=== PATIENT | female | born 1950 | race Caucasian/White ===

== ENCOUNTER 2022-04-23 12:10 | Observation (INO) | payer MEDICARE, SELFPAY ==
--- NOTE | ~2022-04-23 | XR_ITS ---
EXAMINATION: XR CHEST CLINICAL INFORMATION: Chest pain COMPARISON: 02/11/2020 TECHNIQUE: Frontal view of the chest was obtained. FINDINGS: Lung volumes are symmetric. No focal consolidation is seen. No evidence of pneumothorax, pleural effusion, or pulmonary edema. Cardiac size is within normal limits. Calcification is present at the aortic arch. Redemonstrated prominent hiatal hernia. Sternal wires are present. No acute osseous findings are seen. XR/XR chest 1V IMPRESSION: Redemonstrated prominent hiatal hernia. No new acute findings identified.
--- NOTE | 2022-04-23 12:20 | ECG_ITS ---
Test Reason : cp Blood Pressure : / mmHG Vent. Rate : 085 BPM Atrial Rate : 085 BPM P-R Int : 176 ms QRS Dur : 076 ms QT Int : 412 ms P-R-T Axes : 000 024 086 degrees QTc Int : 490 ms Sinus rhythm with frequent Premature ventricular complexes and Premature atrial complexes Anterior infarct , age undetermined Abnormal ECG When compared with ECG of 15-FEB-2020 05:20, Premature ventricular complexes are now Present Premature atrial complexes are now Present Nonspecific T wave abnormality now evident in Inferior leads Nonspecific T wave abnormality no longer evident in Anterior leads Referred By: Dina Yap Electronically Signed By:Huseyin Lorenzo
[2022-04-23 12:21] VITALS: BP 167/99; BP 169/84; PULSE 74; PULSE 85; RESP 16; O2SAT 94; BMI 19.5
--- NOTE | 2022-04-23 12:26 | ED.CHESTPAIN ---
HPI - Chest Pain General Chief Complaint: Chest Pain Stated Complaint: CP TO L ARM STARTED @ REST PER EMS Time Seen by Provider: 04/23/22 12:23 Source: patient Mode of arrival: EMS Limitations: no limitations History of Present Illness MD complaint: chest pain Onset (ago): hour(s) (2) Timing of current episode: now resolved (post fentanyl with EMS) Prior episodes: No Onset: during rest Pain location: substernal and epigastric Pain radiation: left shoulder Severity: mild Quality: heaviness Relieving factors: nothing Exacerbating factors: other (went away after EMS fentanyl) Associated symptoms: nausea Treatment prior to arrival: other (IV fentanyl 50mcg) Related Data Previous Rx's Medication Instructions Recorded tapentadol 150 mg tablet,extended 150 mg PO BID #14 tabs 12/16/20 release,12 hr (Nucynta ER) Allergies Allergy/AdvReac Type Severity Reaction Status Date / Time No Known Allergies Allergy Unknown NOT Unverified 07/04/20 14:39 APPLICABLE Review of Systems Review of Systems: Constitutional : No Weight loss, No Fever, No Chills ENT/Mouth : No sore throat, No Rhinorrhea Eyes: No Eye Pain, No Swelling Cardiovascular : pos Chest Pain, no SOB, no Dyspnea on Exertion, No Orthopnea, No Edema, No Palpitations Respiratory : No Cough, No Sputum Gastrointestinal : pos Nausea, No Vomiting, No Diarrhea, pos abdominal Pain, No Hematochezia, No Melena Genitourinary : No Dysuria, No Urinary Frequency Musculoskeletal : No joint pain, No Myalgias, No Joint Swelling Skin : No Skin Lesions, No rash Neuro : No Weakness, No Numbness, No Dizziness, No Headache Psych : No Anxiety/Panic, No Depression Heme/Lymph: No Bruising, No Lymphadenopathy Endocrine : No Polyuria, No Polydipsia All other systems reviewed and are negative PMFSH Past Medical History Medical History (Updated 04/23/22 @ 15:40 by Dina Yap DO) Anxiety CVA (cerebral vascular accident) Depression Hyperlipidemia Surgical History Mitral valve replaced Social History Social History (Updated 04/23/22 @ 12:54 by Dina Yap DO) Patient Tobacco Use Status: Never used Tobacco Advance Directives: Yes Advance Directives on File: No Physical Exam Vital Signs: Vital Signs: Last Vital Signs Temp 98.7 F 04/23/22 14:10 Pulse 79 04/23/22 14:10 Resp 12 04/23/22 14:10 BP 135/52 L 04/23/22 14:10 Pulse Ox 97 04/23/22 14:10 O2 Del Method 04/23/22 14:10 BMI result Body Mass Index 19.5 Appearance: Alert. Oriented X3. No acute distress. Eyes: Pupils equal, round and reactive to light. ENT: Pharynx normal. Neck: Normal inspection. Neck supple. CVS: Normal heart rate and rhythm. Pulses normal. Click heard Respiratory: No respiratory distress. Breath sounds normal. Abdomen: Soft and nontender. states she has no pain to palpations Skin: Skin warm and dry. Normal skin color. Normal skin turgor. Extremities: No lower extremity edema. No calf ttp Neuro: Oriented X 3. R sided hemiparesis No sensory deficit. Course Course Course Narrative: troponin repeat under delta will repeat troponin if it remains negative will anticipate DC home signed out pending repeat troponin signed out to Dr. Browning patient has no complaints at this time if repeat negative can be DC has no chest pain at this time MDM - Chest Pain MDM Narrative Medical decision making narrative: 71 yo female hx of MV replacement on coumadin, CVA hx of R sided hemiparesis, HTN, HLD, anxiety here with c/o chest pain that started 2 hours ago at rest - EKG is nonspecific. She is on coumadin doubt PE. At this time will obtain labs, troponin x 2. Pain gone with nitro. She has a nontender abdomen as well. Dispo per results and findings. Lab Data Result diagrams: 04/23/22 12:38 04/23/22 12:38 Labs: Lab Results 04/23/22 04/23/22 04/23/22 Range/Units 12:37 12:38 12:38 WBC 8.9 (4.8-10.8) X10*3/uL RBC 5.00 (4.20-5.50) X10*6/uL Hgb 15.3 (12.0-16.0) g/dl Hct 45.6 (37.0-47.0) % MCV 91.2 (80.0-98.0) fL MCH 30.6 (27.0-33.0) pg MCHC 33.6 (31.0-35.0) g/dl RDW 12.9 (11.0-16.0) % Plt Count 200 (160-400) X10*3/uL MPV 9.5 (9.4-12.3) fL Immature Gran % (Auto) 0.3 (0.0-0.4) % Neut % (Auto) 82.3 H (45-73) % Lymph % (Auto) 10.8 L (20-40) % [place] % (Auto) 4.7 (2-11) % Eos % (Auto) 1.1 (0-4) % Baso % (Auto) 0.8 (0-2) % Lymph # (Auto) 1.0 L (1.2-4.9) X10*3/uL [place] # (Auto) 0.4 (0.1-1.2) X10*3/uL Eos # (Auto) 0.1 (0.0-0.4) X10*3/uL Baso # (Auto) 0.1 (0.0-0.2) X10*3/uL Abs Immat Gran (auto) 0.03 (0.00-0.03) X10*3/uL Absolute Neuts (auto) 7.3 (2.0-8.3) x10*3/uL Absolute Nucleated RBC 0.000 (0.0-0.012) X10*3/uL Nucleated RBC % (auto) 0.0 (0.0-0.2) /100WBC PT (10.0-13.1) SEC INR (0.9-1.1) Sodium 138 (135-145) mmol/L Potassium 4.4 (3.3-5.1) mmol/L Chloride 104 (96-108) mmol/L Carbon Dioxide 25 (22-29) mmol/L Anion Gap 13 (12-20) BUN 18 H (9-16) mg/dL Creatinine 0.95 (0.5-1.4) mg/dL Estim Creat Clear Calc 55.2 Estimated GFR 58 Random Glucose 146 H (60-115) mg/dL Calcium 9.5 (8.4-10.2) mg/dL Magnesium 1.8 (1.6-2.6) mg/dL Total Bilirubin 0.6 (0.0-1.0) mg/dL Direct Bilirubin 0.3 (0.0-0.5) mg/dL AST 29 (5-31) U/L ALT 27 (0-31) U/L Alkaline Phosphatase 90 (39-117) U/L Troponin I High Sens (<3.5-17.0) ng/L Total Protein 7.6 (6.5-8.0) g/dL Albumin 4.3 (3.5-5.0) g/dL Lipase 33 (8-78) U/L COVID-19 ([facility]) Negative (Negative) COVID-19 Clin Com See Note 04/23/22 04/23/22 04/23/22 Range/Units 12:38 12:38 15:06 WBC (4.8-10.8) X10*3/uL RBC (4.20-5.50) X10*6/uL Hgb (12.0-16.0) g/dl Hct (37.0-47.0) % MCV (80.0-98.0) fL MCH (27.0-33.0) pg MCHC (31.0-35.0) g/dl RDW (11.0-16.0) % Plt Count (160-400) X10*3/uL MPV (9.4-12.3) fL Immature Gran % (Auto) (0.0-0.4) % Neut % (Auto) (45-73) % Lymph % (Auto) (20-40) % [place] % (Auto) (2-11) % Eos % (Auto) (0-4) % Baso % (Auto) (0-2) % Lymph # (Auto) (1.2-4.9) X10*3/uL [place] # (Auto) (0.1-1.2) X10*3/uL Eos # (Auto) (0.0-0.4) X10*3/uL Baso # (Auto) (0.0-0.2) X10*3/uL Abs Immat Gran (auto) (0.00-0.03) X10*3/uL Absolute Neuts (auto) (2.0-8.3) x10*3/uL Absolute Nucleated RBC (0.0-0.012) X10*3/uL Nucleated RBC % (auto) (0.0-0.2) /100WBC PT 33.5 H (10.0-13.1) SEC INR 2.8 H (0.9-1.1) Sodium (135-145) mmol/L Potassium (3.3-5.1) mmol/L Chloride (96-108) mmol/L Carbon Dioxide (22-29) mmol/L Anion Gap (12-20) BUN (9-16) mg/dL Creatinine (0.5-1.4) mg/dL Estim Creat Clear Calc Estimated GFR Random Glucose (60-115) mg/dL Calcium (8.4-10.2) mg/dL Magnesium (1.6-2.6) mg/dL Total Bilirubin (0.0-1.0) mg/dL Direct Bilirubin (0.0-0.5) mg/dL AST (5-31) U/L ALT (0-31) U/L Alkaline Phosphatase (39-117) U/L Troponin I High Sens 13.2 17.7 H (<3.5-17.0) ng/L Total Protein (6.5-8.0) g/dL Albumin (3.5-5.0) g/dL Lipase (8-78) U/L COVID-19 ([facility]) (Negative) COVID-19 Clin Com ECG Data ECG #1: Attestation: I personally reviewed and interpreted this ECG as follows: ECG interpretation date: 04/23/22 ECG interpretation time: 12:35 Interpretation: Rate: 85 Rhythm: NSR with PACs and PVCs [place]: normal Normal P waves. Normal VIRI. Normal QRS complex. ST T wave : no MYRON, nonspecific qTC: prolonged prior studies: no acute ischemia The study has been interpreted contemporaneously by me. ECG #2: Attestation: I personally reviewed and interpreted this ECG as follows: ECG interpretation date: 04/23/22 ECG interpretation time: 15:53 Interpretation: Rate: 73 Rhythm: NSR [place]:normal Normal P waves. Normal VIRI. Normal QRS complex. ST T wave : nonspecific, no MYRON qTC: normal prior studies: no sig change from january 2020 The study has been interpreted contemporaneously by me. . Discharge Plan Discharge Clinical Impression: Chest pain Qualifiers: Chest pain type: precordial pain Qualified Code(s): R07.2 - Precordial pain Patient Disposition: Still a Patient Prescriptions: No Action Nucynta ER 150 mg tablet extended release 12 hr 150 mg PO BID Qty: 14 0RF
[2022-04-23 12:33] VITALS: TEMP 36.8
[2022-04-23 12:48] LABS: MANUAL DIFF FLAG NO
[2022-04-23 12:50] LABS: Basophils Absolute Auto 0.1 X10*3/uL (0.0-0.2); Basophils Percent Auto 0.8 % (0-2); Eosinophils Absolute Auto 0.1 X10*3/uL (0.0-0.4); Eosinophils Percent Auto 1.1 % (0-4); Hematocrit 45.6 % (37.0-47.0); Hemoglobin 15.3 g/dl (12.0-16.0); Imm Gran Abs Auto 0.03 X10*3/uL (0.00-0.03); Imm Gran Pct Auto 0.3 % (0.0-0.4); Lymphocytes Percent Auto 10.8 % (20-40); Mean Corpuscular HGB Conc 33.6 g/dl (31.0-35.0); Mean Corpuscular Hemoglobin 30.6 pg (27.0-33.0); Mean Corpuscular Volume 91.2 fL (80.0-98.0); Mean Platelet Volume 9.5 fL (9.4-12.3); Monocytes Absolute Auto 0.4 X10*3/uL (0.1-1.2); Monocytes Percent Auto 4.7 % (2-11); Neutrophils Absolute Auto 7.3 x10*3/uL (2.0-8.3); Neutrophils Percent Auto 82.3 % (45-73); Platelet Count 200 X10*3/uL (160-400); Red Cell Distribution Width 12.9 % (11.0-16.0); White Blood Count 8.9 X10*3/uL (4.8-10.8)
[2022-04-23 12:58] LABS: INTERNATIONAL NORM RATIO 2.8 (0.9-1.1); Prothrombin Time 33.5 SEC (10.0-13.1)
[2022-04-23 13:08] LABS: Alanine Aminotransferase 27 U/L (0-31); Albumin Level 4.3 g/dL (3.5-5.0); Alkaline Phosphatase 90 U/L (39-117); Anion Gap 13 (12-20); Aspartate Amino Transferase 29 U/L (5-31); Bilirubin Direct 0.3 mg/dL (0.0-0.5); Bilirubin Total 0.6 mg/dL (0.0-1.0); Blood Urea Nitrogen 18 mg/dL (9-16); Calcium 9.5 mg/dL (8.4-10.2); Carbon Dioxide 25 mmol/L (22-29); Chloride 104 mmol/L (96-108); Creatinine Clr Calc Pharmacy 55.2; Estimated Glomerular Filt Rate 58; Glucose Random 146 mg/dL (60-115); Lipase 33 U/L (8-78); Magnesium 1.8 mg/dL (1.6-2.6); Potassium 4.4 mmol/L (3.3-5.1); Sodium 138 mmol/L (135-145); Total Protein 7.6 g/dL (6.5-8.0)
[2022-04-23 13:10] LABS: Troponin-I High Sensitivity 13.2 ng/L (<3.5-17.0)
[2022-04-23 13:17] LABS: COVID-19 Test Negative (Negative); IDNOW Serial# 16C4AD1C
[2022-04-23 14:10] VITALS: BP 135/52; PULSE 79; RESP 12; TEMP 37.1; O2SAT 97
[2022-04-23 15:37] LABS: Troponin-I High Sensitivity 17.7 ng/L (<3.5-17.0)
--- NOTE | 2022-04-23 15:45 | ECG_ITS ---
Test Reason : REPEAT Blood Pressure : / mmHG Vent. Rate : 073 BPM Atrial Rate : 073 BPM P-R Int : 160 ms QRS Dur : 074 ms QT Int : 386 ms P-R-T Axes : 018 -23 205 degrees QTc Int : 425 ms Normal sinus rhythm Nonspecific T wave abnormality Abnormal ECG When compared with ECG of 23-APR-2022 12:24, Premature ventricular complexes are no longer Present Premature atrial complexes are no longer Present Inverted T waves have replaced nonspecific T wave abnormality in Lateral leads QT has shortened Referred By: Dina Yap Electronically Signed By:Huseyin Lorenzo
[2022-04-23 16:07] VITALS: BP 133/68; PULSE 73; RESP 17; TEMP 37.1; O2SAT 94
[2022-04-23 16:23] VITALS: PULSE 73
--- NOTE | 2022-04-23 19:35 | PM.IMHP ---
History of Present Illness Date of Service: 04/23/22 Chief Complaint: chest pain 71-year-old female with a past medical history of hyperlipidemia, CVA with residual right-sided hemiparesis, anxiety, depression, MVR on Coumadin presented to the hospital today with a chief complaint of chest pain. Patient reports that she developed chest pain located on the left side of the chest, also noted pain in the upper abdomen; followed by patient radiated to the left shoulder; denies any associated lightheadedness dizziness, nausea vomiting or diaphoresis. Reports her chest pain improved at the time of my interview. Denies any fever chills cough. Denies any recent travel or sick contacts. Review of all other systems is negative except mentioned above ER course: Per ER team patient initial troponin was noted to be 8 follow-up troponin elevated to 27; INR is 2.8. EKG was nonischemic. Cardiology was notified who recommended admission for observation, evaluated in the morning. [facility] Medical History (Updated 04/23/22 @ 15:40 by Dina Yap DO) Anxiety CVA (cerebral vascular accident) Depression Hyperlipidemia Pertinent family history: mother: Diabetes Surgical History Mitral valve replaced Social History (Updated 04/23/22 @ 12:54 by Dina Yap DO) Patient Tobacco Use Status: Never used Tobacco Use of substances other than those prescribed or required for medical reasons: No Advance Directives: Yes Advance Directives on File: No Meds Allergies Allergy/AdvReac Type Severity Reaction Status Date / Time No Known Allergies Allergy Unknown NOT Unverified 07/04/20 14:39 APPLICABLE Home Medications Medication Instructions Recorded Confirmed Last Taken Type aspirin 81 mg tablet,delayed 81 mg PO DAILY 04/23/22 04/23/22 04/23/22 History release atorvastatin 20 mg tablet 1 tab PO BEDTIME 04/23/22 04/23/22 04/22/22 History duloxetine 60 mg capsule,delayed 1 cap PO DAILY 04/23/22 04/23/22 04/23/22 History release lorazepam 1 mg tablet 1 tab PO TID 04/23/22 04/23/22 04/23/22 History mirtazapine 15 mg tablet 0.5 tab PO BEDTIME 04/23/22 04/23/22 04/22/22 History trazodone 100 mg tablet 1 tab PO BEDTIME 04/23/22 04/23/22 04/22/22 History warfarin 2 mg tablet 2 tab PO DAILY@1800 04/23/22 04/23/22 04/22/22 History Physical Exam Vital Signs and Narrative: Vital Signs: Last Vital Signs Temp 98.8 F 04/23/22 16:07 Pulse 73 04/23/22 16:07 Resp 17 04/23/22 16:07 BP 133/68 04/23/22 16:07 Pulse Ox 94 04/23/22 16:07 O2 Del Method 04/23/22 16:07 BMI result Body Mass Index 19.5 Gen: Appears be in no acute distress HEENT: NCAT, Moist mucosa. Pulmonary: Vesicular breath sounds, fair air entry CVS: Normal S1-S2 Abdomen: BS+, Soft, Nontender Extremities: Warm well perfused Neuro: Alert and awake. Right hemiparesis Results Labs CBC and Chem 7: 04/23/22 12:38 04/23/22 12:38 Labs: Laboratory Results - last 24 hr 04/23/22 04/23/22 04/23/22 12:37 12:38 12:38 MCV 91.2 MCH 30.6 MCHC 33.6 RDW 12.9 Plt Count 200 MPV 9.5 Immature Gran % (Auto) 0.3 Neut % (Auto) 82.3 H Lymph % (Auto) 10.8 L [place] % (Auto) 4.7 Eos % (Auto) 1.1 Baso % (Auto) 0.8 Lymph # (Auto) 1.0 L [place] # (Auto) 0.4 Eos # (Auto) 0.1 Baso # (Auto) 0.1 Abs Immat Gran (auto) 0.03 Absolute Neuts (auto) 7.3 Absolute Nucleated RBC 0.000 Nucleated RBC % (auto) 0.0 PT INR Anion Gap 13 Estim Creat Clear Calc 55.2 Estimated GFR 58 Random Glucose 146 H Calcium 9.5 Magnesium 1.8 Total Bilirubin 0.6 Direct Bilirubin 0.3 AST 29 ALT 27 Alkaline Phosphatase 90 Troponin I High Sens Total Protein 7.6 Albumin 4.3 Lipase 33 COVID-19 ([place]) Negative COVID-19 Clin Com See Note 04/23/22 04/23/22 04/23/22 12:38 12:38 15:06 MCV MCH MCHC RDW Plt Count MPV Immature Gran % (Auto) Neut % (Auto) Lymph % (Auto) [place] % (Auto) Eos % (Auto) Baso % (Auto) Lymph # (Auto) [place] # (Auto) Eos # (Auto) Baso # (Auto) Abs Immat Gran (auto) Absolute Neuts (auto) Absolute Nucleated RBC Nucleated RBC % (auto) PT 33.5 H INR 2.8 H Anion Gap Estim Creat Clear Calc Estimated GFR Random Glucose Calcium Magnesium Total Bilirubin Direct Bilirubin AST ALT Alkaline Phosphatase Troponin I High Sens 13.2 17.7 H Total Protein Albumin Lipase COVID-19 ([facility]) COVID-19 Clin Com 04/23/22 17:41 MCV MCH MCHC RDW Plt Count MPV Immature Gran % (Auto) Neut % (Auto) Lymph % (Auto) [place] % (Auto) Eos % (Auto) Baso % (Auto) Lymph # (Auto) [place] # (Auto) Eos # (Auto) Baso # (Auto) Abs Immat Gran (auto) Absolute Neuts (auto) Absolute Nucleated RBC Nucleated RBC % (auto) PT INR Anion Gap Estim Creat Clear Calc Estimated GFR Random Glucose Calcium Magnesium Total Bilirubin Direct Bilirubin AST ALT Alkaline Phosphatase Troponin I High Sens 27.0 H D Total Protein Albumin Lipase COVID-19 ([facility]) COVID-19 Clin Com Imaging Radiologist's Impressions: Impressions Chest X-Ray 04/23/22 13:23 IMPRESSION: Redemonstrated prominent hiatal hernia. No new acute findings identified. Assessment and Plan (1) Chest pain: Qualifiers: Chest pain type: precordial pain Qualified Code(s): R07.2 - Precordial pain Status: Acute Plan 71-year-old female with a past medical history of hyperlipidemia, CVA with residual right-sided hemiparesis, anxiety, depression, MVR on Coumadin presented to the hospital today with a chief complaint of chest pain. Chest pain: Currently resolved EKG nonischemic Troponin 17-->27 Telemetry Cycle cardiac enzymes Cardiology consult aware of the patient History of MVR: Patient on Coumadin. INR therapeutic at 2.8. Continue home Coumadin. History of CVA: Continue home aspirin/ statin History of anxiety/ depression: Continue home aspirin/ mirtazapine DVT prophylaxis: Patient on Coumadin Code status: Full code Quality Stroke Does the patient have a stroke diagnosis?: No VTE Prior VTE?: No VTE Risk Level:: Medical - moderate - high VTE Device Contraindication: Treatment Not Indicated VTE Drug Contraindication: N/A - Med Ordered
[2022-04-23 20:31] VITALS: BP 132/57; PULSE 61; RESP 18; TEMP 36.6; O2SAT 94
--- NOTE | 2022-04-23 20:45 | PHA.MEDREC ---
Pharmacy Consult ? Medication Reconciliation Pharmacy has completed the medication reconciliation.
[2022-04-23] MEDS: Warfarin Sodium 4 MG TABLET PO (23:17)
--- NOTE | 2022-04-24 00:03 | PC.NURSE ---
PT refused EKG at 2320
[2022-04-24 04:00] VITALS: BP 126/62; PULSE 59; RESP 15; TEMP 35.8; O2SAT 96
[2022-04-24 04:09] VITALS: BMI 19.3
[2022-04-24 06:38] LABS: MANUAL DIFF FLAG NO
[2022-04-24 06:40] LABS: Basophils Absolute Auto 0.1 X10*3/uL (0.0-0.2); Eosinophils Absolute Auto 0.3 X10*3/uL (0.0-0.4); Eosinophils Percent Auto 4.5 % (0-4); Hematocrit 44.7 % (37.0-47.0); Imm Gran Abs Auto 0.02 X10*3/uL (0.00-0.03); Imm Gran Pct Auto 0.3 % (0.0-0.4); Lymphocytes Absolute Auto 1.9 X10*3/uL (1.2-4.9); Lymphocytes Percent Auto 27.9 % (20-40); Mean Corpuscular HGB Conc 33.6 g/dl (31.0-35.0); Mean Corpuscular Hemoglobin 31.1 pg (27.0-33.0); Mean Corpuscular Volume 92.5 fL (80.0-98.0); Mean Platelet Volume 9.9 fL (9.4-12.3); Monocytes Absolute Auto 0.5 X10*3/uL (0.1-1.2); Monocytes Percent Auto 6.7 % (2-11); Neutrophils Percent Auto 59.6 % (45-73); Platelet Count 210 X10*3/uL (160-400); Red Blood Count 4.83 X10*6/uL (4.20-5.50); Red Cell Distribution Width 12.7 % (11.0-16.0); White Blood Count 6.7 X10*3/uL (4.8-10.8)
[2022-04-24 06:46] LABS: INTERNATIONAL NORM RATIO 2.8 (0.9-1.1); Prothrombin Time 33.9 SEC (10.0-13.1)
[2022-04-24 06:56] LABS: Anion Gap 15 (12-20); Blood Urea Nitrogen 21 mg/dL (9-16); Calcium 9.3 mg/dL (8.4-10.2); Carbon Dioxide 24 mmol/L (22-29); Chloride 104 mmol/L (96-108); Creatinine Clr Calc Pharmacy 67.2; Estimated Glomerular Filt Rate > 60; Glucose Random 85 mg/dL (60-115); Potassium 3.9 mmol/L (3.3-5.1); Sodium 139 mmol/L (135-145)
--- NOTE | 2022-04-24 09:10 | MHC.CM.PN ---
LOVE addressed with pt at bedside 04/24/22, original to pt and copy filed in chart. CM met with pt., she reports she lives at [facility] (Assisted Living Facility), uses wheelchair. She reports receiving basic services at [facility]. Pt reports has a HCP, copy requested. PCP: Isaias Cardona-on file; however, pt reports it's a woman but not sure of name. She is COVID Vax'd but unsure which provider. Pt will need assist with transportation. CM observed pt to be teary-eyed and anxious. She repeated, I want to go home. CM will address with MD in ROUNDS. D/C Plan: [facility] ([facility]) vs ([facility]) with New Services
--- NOTE | 2022-04-24 10:27 | PM.DS ---
DS: Providers Provider Date of Service: 04/24/22 Date of admission: 04/23/22 19:33 Date of discharge: 04/24/22 Primary care physician: Isaias Cardona MD Consults: 04/23/22 19:33 Consult to Cardiology Routine Consulting Provider: Huseyin Lorenzo Reason for consultation: chest pain Attending physician on discharge: Eddie Berman Discharging clinician: Holly Chawla DS: Diagnosis Discharge Diagnosis (1) Chest pain: Status: Acute DS: Summary Hospital Course Hospital Course: From H&P on day of admission 71-year-old female with a past medical history of hyperlipidemia, CVA with residual right-sided hemiparesis, anxiety, depression,? MVR on Coumadin presented to the hospital today with a chief complaint of? chest pain.? Patient reports that she developed chest pain located on the left side of the chest, also noted pain in the upper abdomen; followed by patient radiated to the left shoulder; denies any associated lightheadedness dizziness, nausea vomiting or diaphoresis.? Reports her chest pain improved at the time of my interview.? Denies any fever chills cough.? Denies any recent travel or sick contacts.? Review of all other systems is negative except mentioned above ER course: Per ER team patient initial troponin was noted to be 8 follow-up troponin elevated to 27; INR is 2.8.? EKG was nonischemic.? Cardiology was notified who recommended admission for observation, evaluated in the morning. Chest pain. ACS ruled out. EKG showed some nonspecific changes. Initially troponin went from 13.2 to 17.7 to 27.0 but then down to 21.0. Chest pain resolved. She was seen in consultation by Cardiology. She does not need any further inpatient workup. Cardiology has recommended outpatient stress test. She should call to schedule follow-up appointment with Cardiology. She is eager to return home. Her chest x-ray did demonstrate prominent hiatal hernia. Should call to schedule follow-up appointment with PCP. Time Spent with Patient Time attestation: Total time spent providing and/or coordinating discharge services: Discharge coordination time: Greater than 30 minutes Quality: Safe Use of Opioids Does Pt have an Active Cancer Diagnosis on the Problem List?: No Quality: Stroke Does the patient have a stroke diagnosis?: No Physical Exam Vital Signs: Vital Signs: Last Vital Signs Temp 96.5 F L 04/24/22 04:00 Pulse 59 04/24/22 04:00 Resp 15 04/24/22 04:00 BP 126/62 04/24/22 04:00 Pulse Ox 96 04/24/22 04:00 O2 Del Method 04/24/22 04:00 BMI result Body Mass Index 19.3 Const: General: cooperative, no acute distress, alert and awake Nutritional Appearance: thin Resp: Effort & Inspection: normal respiratory effort and able to speak in complete sentences Auscultation: clear to auscultation bilaterally Cardio: Rate: regular rate Heart sounds: S1 normal heart sound present and S2 normal heart sound present Extrem: Other: RUE contracted DS: Data Data Completed and Pending Labs on day of discharge: Laboratory Results - last 24 hr 04/23/22 04/23/22 04/23/22 12:37 12:38 12:38 WBC 8.9 RBC 5.00 Hgb 15.3 Hct 45.6 MCV 91.2 MCH 30.6 MCHC 33.6 RDW 12.9 Plt Count 200 MPV 9.5 Immature Gran % (Auto) 0.3 Neut % (Auto) 82.3 H Lymph % (Auto) 10.8 L [place] % (Auto) 4.7 Eos % (Auto) 1.1 Baso % (Auto) 0.8 Lymph # (Auto) 1.0 L [place] # (Auto) 0.4 Eos # (Auto) 0.1 Baso # (Auto) 0.1 Abs Immat Gran (auto) 0.03 Absolute Neuts (auto) 7.3 Absolute Nucleated RBC 0.000 Nucleated RBC % (auto) 0.0 PT INR Sodium 138 Potassium 4.4 Chloride 104 Carbon Dioxide 25 Anion Gap 13 BUN 18 H Creatinine 0.95 Estim Creat Clear Calc 55.2 Estimated GFR 58 Random Glucose 146 H Calcium 9.5 Magnesium 1.8 Total Bilirubin 0.6 Direct Bilirubin 0.3 AST 29 ALT 27 Alkaline Phosphatase 90 Troponin I High Sens Total Protein 7.6 Albumin 4.3 Lipase 33 COVID-19 ([facility]) Negative COVID-19 Clin Com See Note 04/23/22 04/23/22 04/23/22 12:38 12:38 15:06 WBC RBC Hgb Hct MCV MCH MCHC RDW Plt Count MPV Immature Gran % (Auto) Neut % (Auto) Lymph % (Auto) [place] % (Auto) Eos % (Auto) Baso % (Auto) Lymph # (Auto) [place] # (Auto) Eos # (Auto) Baso # (Auto) Abs Immat Gran (auto) Absolute Neuts (auto) Absolute Nucleated RBC Nucleated RBC % (auto) PT 33.5 H INR 2.8 H Sodium Potassium Chloride Carbon Dioxide Anion Gap BUN Creatinine Estim Creat Clear Calc Estimated GFR Random Glucose Calcium Magnesium Total Bilirubin Direct Bilirubin AST ALT Alkaline Phosphatase Troponin I High Sens 13.2 17.7 H Total Protein Albumin Lipase COVID-19 ([place]) COVID-19 [employer] 04/23/22 04/24/22 04/24/22 17:41 06:14 06:14 WBC 6.7 RBC 4.83 Hgb 15.0 Hct 44.7 MCV 92.5 MCH 31.1 MCHC 33.6 RDW 12.7 Plt Count 210 MPV 9.9 Immature Gran % (Auto) 0.3 Neut % (Auto) 59.6 Lymph % (Auto) 27.9 [place] % (Auto) 6.7 Eos % (Auto) 4.5 H Baso % (Auto) 1.0 Lymph # (Auto) 1.9 [place] # (Auto) 0.5 Eos # (Auto) 0.3 Baso # (Auto) 0.1 Abs Immat Gran (auto) 0.02 Absolute Neuts (auto) 4.0 Absolute Nucleated RBC 0.000 Nucleated RBC % (auto) 0.0 PT INR Sodium 139 Potassium 3.9 Chloride 104 Carbon Dioxide 24 Anion Gap 15 BUN 21 H Creatinine 0.77 Estim Creat Clear Calc 67.2 Estimated GFR > 60 Random Glucose 85 Calcium 9.3 Magnesium Total Bilirubin Direct Bilirubin AST ALT Alkaline Phosphatase Troponin I High Sens 27.0 H D Total Protein Albumin Lipase COVID-19 ([place]) COVID-19 [employer] 04/24/22 04/24/22 06:14 06:14 WBC RBC Hgb Hct MCV MCH MCHC RDW Plt Count MPV Immature Gran % (Auto) Neut % (Auto) Lymph % (Auto) [place] % (Auto) Eos % (Auto) Baso % (Auto) Lymph # (Auto) [place] # (Auto) Eos # (Auto) Baso # (Auto) Abs Immat Gran (auto) Absolute Neuts (auto) Absolute Nucleated RBC Nucleated RBC % (auto) PT 33.9 H INR 2.8 H Sodium Potassium Chloride Carbon Dioxide Anion Gap BUN Creatinine Estim Creat Clear Calc Estimated GFR Random Glucose Calcium Magnesium Total Bilirubin Direct Bilirubin AST ALT Alkaline Phosphatase Troponin I High Sens 21.0 H Total Protein Albumin Lipase COVID-19 ([facility]) COVID-19 Clin Com Discharge Plan Discharge Patient Disposition: Home, Self-Care Discharge Diagnosis: chest pain Referrals: Huseyin Lorenzo MD [Physician] - 1 Week Isaias Cardona MD [Primary Care Provider] - 1 Week Discharge Medications: Continued atorvastatin 20 mg tablet 1 tab PO BEDTIME trazodone 100 mg tablet 1 tab PO BEDTIME warfarin 2 mg tablet 2 tab PO DAILY@1800 mirtazapine 15 mg tablet 0.5 tab PO BEDTIME lorazepam 1 mg tablet 1 tab PO TID duloxetine 60 mg capsule,delayed release(DR/EC) 1 cap PO DAILY aspirin 81 mg Tablet,Delayed Release (Dr/Ec) 81 mg PO DAILY Discharge Orders: Discharge Order (Routine); Ordered 04/24/22 Ordered By: Holly Chawla Activity on Discharge: As tolerated Stand Alone Forms: Patient Portal Discharge page Care Plan Goals: See below Health Concerns: Chest pain-ACS ruled out Hiatal hernia Plan of Treatment: Call to schedule follow-up appointment with Cardiology-they have recommended outpatient stress test Call to schedule PCP for follow-up Assessment: see discharge summary Discharge Date/Time: 04/24/22 12:56
[2022-04-24] MEDS: LORazepam 1 MG TABLET PO (11:05)
[2022-04-24] MEDS: 0.9 % Sodium Chloride Flush 3 ML SYRINGE IVFLUSH (11:05)
[2022-04-24] MEDS: DULoxetine HCl 60 MG CAPSULE.DR PO (11:05)
[2022-04-24] MEDS: Aspirin Enteric Coated 81 MG TABLET.DR PO (11:13)
--- NOTE | 2022-04-24 11:16 | MHC.CM.PN ---
Patient has been medically cleared for discharge today, she will discharge to home without services. Phone call to Fidencio, he will transport home.
--- NOTE | 2022-04-24 11:25 | P.CONCA_ITS ---
History of Present Illness History of Present Illness Date of Service: 04/24/22 Requesting physician: Holly Chawla Chief complaint: Chest Pain Narrative: 71-year-old female with background history of MVR and CVA presenting for chest pain which she said she was sitting eating breakfast and drinking coffee when she started having sharp central chest pain radiating to her arm. This lasts for approximately 20-30 minutes before she reached [facility]. Here her EKG showed nonspecific T-wave changes in the precordial leads and there was no evolution of EKG. The pain stayed there for approximately 2 hours and then resolved on its own. Her troponins were 13, 17, 27 and 21. She since then has not had any further chest discomfort. She has right-sided hemiplegia and visual loss previously. She walks with assistance. Has not experienced any symptoms with minimal physical activity that she gets. [facility] Past Medical History Medical History Anxiety CVA (cerebral vascular accident) Depression Hyperlipidemia Surgical History Surgical History Mitral valve replaced Social History Social History (Updated 04/23/22 @ 12:54 by Dina Yap DO) Patient Tobacco Use Status: Never used Tobacco Use of substances other than those prescribed or required for medical reasons: No Advance Directives: Yes Advance Directives Information Provided: No (Not on file) Advance Directives on File: No Advance Directives Date on File: 04/24/22 service: No Current occupational status: retired Meds Allergies Allergy/AdvReac Type Severity Reaction Status Date / Time No Known Allergies Allergy Unknown NOT Unverified 07/04/20 14:39 APPLICABLE Active Medications: Current Medications Acetaminophen (Acetaminophen 325 Mg Tablet) 650 mg PO Q6H PRN PRN Reason: Pain, Mild (Pain Scale 1-3) Aspirin (Aspirin Enteric Coated 81 Mg Tablet.) 81 mg PO DAILY [facility] Last Admin: 04/24/22 11:13 Dose: 81 mg Atorvastatin Calcium (Atorvastatin Calcium 20 Mg Tablet) 20 mg PO BEDTIME [facility] Duloxetine HCl (Duloxetine Hcl 60 Mg Capsule.) 60 mg PO DAILY [facility] Last Admin: 04/24/22 11:05 Dose: 60 mg Lorazepam (Lorazepam 1 Mg Tablet) 1 mg PO TID [facility] Last Admin: 04/24/22 11:05 Dose: 1 mg Melatonin (Melatonin 3 Mg Tablet) 6 mg PO BEDTIME PRN PRN Reason: Insomnia Mirtazapine (Mirtazapine 7.5 Mg Tablet) 7.5 mg PO BEDTIME [facility] Senna (Sennosides 8.6 Mg Tablet) 17.2 mg PO BEDTIME PRN PRN Reason: Constipation Sodium Chloride (0.9 % Sodium Chloride Flush 3 Ml Syringe) 3 ml IVFLUSH QSHIFT [facility] Last Admin: 04/24/22 11:05 Dose: 3 ml Trazodone HCl (Trazodone Hcl 100 Mg Tablet) 100 mg PO BEDTIME [facility] Warfarin Sodium (Warfarin Sodium 4 Mg Tablet) 4 mg PO DAILY@1800 [facility] Last Admin: 04/23/22 23:17 Dose: 4 mg Home Medications Medication Instructions Recorded Confirmed Last Taken Type aspirin 81 mg tablet,delayed 81 mg PO DAILY 04/23/22 04/23/22 04/23/22 History release atorvastatin 20 mg tablet 1 tab PO BEDTIME 04/23/22 04/23/22 04/22/22 History duloxetine 60 mg capsule,delayed 1 cap PO DAILY 04/23/22 04/23/22 04/23/22 History release lorazepam 1 mg tablet 1 tab PO TID 04/23/22 04/23/22 04/23/22 History mirtazapine 15 mg tablet 0.5 tab PO BEDTIME 04/23/22 04/23/22 04/22/22 History trazodone 100 mg tablet 1 tab PO BEDTIME 04/23/22 04/23/22 04/22/22 History warfarin 2 mg tablet 2 tab PO DAILY@1800 04/23/22 04/23/22 04/22/22 History Physical Exam Vital Signs: Vital Signs: Last Vital Signs Temp 96.5 F L 04/24/22 04:00 Pulse 59 04/24/22 04:00 Resp 15 04/24/22 04:00 BP 126/62 04/24/22 04:00 Pulse Ox 96 04/24/22 04:00 O2 Del Method 04/24/22 04:00 BMI result Body Mass Index 19.3 GENERAL APPEARANCE: in no acute distress, pleasant. NECK: no carotid bruit, no jugular venous distention. SKIN: no suspicious lesions, warm and dry. HEART: no murmurs, regular rate and rhythm. LUNGS: clear to auscultation bilaterally. ABDOMEN: soft, nontender. EXTREMITIES: no edema. PERIPHERAL PULSES: equal. NEUROLOGIC: Right-sided hemiplegia, AAO X 3 Objective Labs and Meds Result diagrams: 04/24/22 06:14 04/24/22 06:14 Lab results: Laboratory Results - last 24 hr 04/23/22 04/23/22 04/23/22 12:37 12:38 12:38 WBC 8.9 RBC 5.00 Hgb 15.3 Hct 45.6 MCV 91.2 MCH 30.6 MCHC 33.6 RDW 12.9 Plt Count 200 MPV 9.5 Immature Gran % (Auto) 0.3 Neut % (Auto) 82.3 H Lymph % (Auto) 10.8 L Clinton % (Auto) 4.7 Eos % (Auto) 1.1 Baso % (Auto) 0.8 Lymph # (Auto) 1.0 L Clinton # (Auto) 0.4 Eos # (Auto) 0.1 Baso # (Auto) 0.1 Abs Immat Gran (auto) 0.03 Absolute Neuts (auto) 7.3 Absolute Nucleated RBC 0.000 Nucleated RBC % (auto) 0.0 PT INR Sodium 138 Potassium 4.4 Chloride 104 Carbon Dioxide 25 Anion Gap 13 BUN 18 H Creatinine 0.95 Estim Creat Clear Calc 55.2 Estimated GFR 58 Random Glucose 146 H Calcium 9.5 Magnesium 1.8 Total Bilirubin 0.6 Direct Bilirubin 0.3 AST 29 ALT 27 Alkaline Phosphatase 90 Troponin I High Sens Total Protein 7.6 Albumin 4.3 Lipase 33 COVID-19 ([facility]) Negative COVID-19 Clin Com See Note 04/23/22 04/23/22 04/23/22 12:38 12:38 15:06 WBC RBC Hgb Hct MCV MCH MCHC RDW Plt Count MPV Immature Gran % (Auto) Neut % (Auto) Lymph % (Auto) Clinton % (Auto) Eos % (Auto) Baso % (Auto) Lymph # (Auto) Clinton # (Auto) Eos # (Auto) Baso # (Auto) Abs Immat Gran (auto) Absolute Neuts (auto) Absolute Nucleated RBC Nucleated RBC % (auto) PT 33.5 H INR 2.8 H Sodium Potassium Chloride Carbon Dioxide Anion Gap BUN Creatinine Estim Creat Clear Calc Estimated GFR Random Glucose Calcium Magnesium Total Bilirubin Direct Bilirubin AST ALT Alkaline Phosphatase Troponin I High Sens 13.2 17.7 H Total Protein Albumin Lipase COVID-19 ([place]) COVID-19 [employer] [facility] 04/23/22 04/24/22 04/24/22 17:41 06:14 06:14 WBC 6.7 RBC 4.83 Hgb 15.0 Hct 44.7 MCV 92.5 MCH 31.1 MCHC 33.6 RDW 12.7 Plt Count 210 MPV 9.9 Immature Gran % (Auto) 0.3 Neut % (Auto) 59.6 Lymph % (Auto) 27.9 Clinton % (Auto) 6.7 Eos % (Auto) 4.5 H Baso % (Auto) 1.0 Lymph # (Auto) 1.9 Clinton # (Auto) 0.5 Eos # (Auto) 0.3 Baso # (Auto) 0.1 Abs Immat Gran (auto) 0.02 Absolute Neuts (auto) 4.0 Absolute Nucleated RBC 0.000 Nucleated RBC % (auto) 0.0 PT INR Sodium 139 Potassium 3.9 Chloride 104 Carbon Dioxide 24 Anion Gap 15 BUN 21 H Creatinine 0.77 Estim Creat Clear Calc 67.2 Estimated GFR > 60 Random Glucose 85 Calcium 9.3 Magnesium Total Bilirubin Direct Bilirubin AST ALT Alkaline Phosphatase Troponin I High Sens 27.0 H D Total Protein Albumin Lipase COVID-19 ([place]) COVID-19 [employer] 04/24/22 04/24/22 06:14 06:14 WBC RBC Hgb Hct MCV MCH MCHC RDW Plt Count MPV Immature Gran % (Auto) Neut % (Auto) Lymph % (Auto) Clinton % (Auto) Eos % (Auto) Baso % (Auto) Lymph # (Auto) Clinton # (Auto) Eos # (Auto) Baso # (Auto) Abs Immat Gran (auto) Absolute Neuts (auto) Absolute Nucleated RBC Nucleated RBC % (auto) PT 33.9 H INR 2.8 H Sodium Potassium Chloride Carbon Dioxide Anion Gap BUN Creatinine Estim Creat Clear Calc Estimated GFR Random Glucose Calcium Magnesium Total Bilirubin Direct Bilirubin AST ALT Alkaline Phosphatase Troponin I High Sens 21.0 H Total Protein Albumin Lipase COVID-19 ([place]) COVID-19 [employer] Imaging Radiologist's impression: Impressions Chest X-Ray 04/23/22 13:23 IMPRESSION: Redemonstrated prominent hiatal hernia. No new acute findings identified. Assessment and Plan (1) Chest pain: Qualifiers: Chest pain type: precordial pain Qualified Code(s): R07.2 - Precordial pain Status: Acute Plan 71-year-old female who is presenting for approximately 3 hours of chest discomfort with nonspecific T-wave changes on the EKG. Her biomarkers were mildly abnormal. Chest pain characteristic clearly consistent with ischemic pain and I think this is likely esophageal spasm. Having said that she needs stress testing to rule out obstructive coronary disease at that site other possibility in her. I think her presentation is not acute coronary syndrome currently. I have discussed this with her in detail and she is agreeable to undergo Lexiscan as outpatient. She has a formulation scientist that she follows with and will have a discussion with her formulation scientist as outpatient. Thank you for allowing me to participate in the care of your patient. Please feel free to contact me if you have any questions. Procedures Date of Service Date of Service: 04/24/22
== END 2022-04-24 12:56 | disposition home or self-care (01) ==
LOC: HO.ED 15:55 → HO.EDOVER 19:44 → HO.IMC 04-24 00:01
PROVIDERS: Admitting Provider Hospitalist; Emergency Provider Emergency Medicine; PCP Family Medicine; Visit Provider Physician Assistant Medical
DX: R07.2 Precordial pain (principal); R07.89 Other chest pain; R10.10 Upper abdominal pain, unspecified; M25.512 Pain in left shoulder; E78.5 Hyperlipidemia, unspecified; F33.1 Major depressive disorder, recurrent, moderate; F41.9 Anxiety disorder, unspecified; Z20.822 Contact with and (suspected) exposure to COVID-19; Z86.73 Personal history of transient ischemic attack (TIA), and cerebral infarction without residual deficits; Z79.899 Other long term (current) drug therapy; Z79.01 Long term (current) use of anticoagulants; Z79.82 Long term (current) use of aspirin; Z95.2 Presence of prosthetic heart valve
CPT/HCPCS: 36415; 71045; 80048; 80076; 83690; 83735; 84484; 85025; 85610; 87635; 93005; 99219; 99285

== ENCOUNTER → 2022-05-13 13:42 | Outpatient (BNVA) | payer MEDICARE, SELFPAY | PROVIDERS: PCP Internal Medicine; Visit Provider Internal Medicine | DX: R07.2 Precordial pain (principal); Z95.2 Presence of prosthetic heart valve; Z79.01 Long term (current) use of anticoagulants; Z79.82 Long term (current) use of aspirin | CPT/HCPCS: 99212 ==

== ENCOUNTER → 2022-06-19 09:23 | Outpatient (REF) | payer MEDICARE, SELFPAY ==
--- NOTE | 2022-06-19 09:28 | CA_ITS ---
Transthoracic Echocardiogram Patient (Last, First, Middle): Agnes Vasquez, Gender: Female Date of : 1950 Age: 71 Procedure Date: 06/19/2022 Procedure Type: Transthoracic Echocardiogram Location: OP Height: 180.34 cm Weight: 63.05 kg BSA: 1.81 m2 Heart Rate: bpm BP: 120 / 76 mmHg Set Illustrator: TO Referring MD: Bruce Jean MD Disc Recordist: Charles Patterson MD Symptoms: Z95.2 - Presence of prosthetic heart valve Study Quality: Technically Difficult ECG Rhythm: Sinus Conclusions: - 1. Technically limited study 2. Normal LV systolic function with possible pseudonormal filling pattern 3. Normally function mechanical mitral valve 4. Normal RV systolic pressure Findings Left Ventricle Normal left ventricular size, thickness, and systolic function. The visually estimated ejection fraction is between 60-65%. Spectral Doppler is indicative of a pseudonormal filling pattern. Right Ventricle The right ventricle was not well visualized. Normal right ventricular cavity size. Atria The left atrium was not well visualized. Interatrial shunt cannot be excluded. The right atrium was not well visualized. Aortic Valve The aortic valve structure and function is likely normal. There is no aortic valve stenosis. There is no aortic valve regurgitation. Mitral Valve A mechanical prosthetic mitral valve is present. The prosthetic mitral valve appears to be functioning normally. the valve leaflets are not well visualized. There is no clear abnormal rocking motion and the valve is well seated. The mean gradient is appear to be within normal limits Pulmonic Valve The pulmonic valve was not well visualized. Tricuspid Valve The tricuspid valve was not well visualized. There is trace tricuspid valve regurgitation. The right ventricular systolic pressure is normal. The right ventricular systolic pressure is 11 mmHg. Normal right atrial pressure. Great Vessels The aorta was not well visualized. The pulmonary artery was not well visualized. Venous The inferior vena cava is normal in size. Pericardium/Pleural The pericardium was not well visualized. Prior Study Comparison No significant change compared to prior study dated: 06/23/2019. Measurements 2D Linear Measurements IVSd: 0.91 0.6-0.9/0.6-1.0 cm LVIDd: 3.30 3.9-5.3/4.2-5.9 cm LVIDd Index: 1.82 2.4-3.2/2.2-3.1 cm/m2 LVIDs: 2.71 2.0-3.6 cm LVPWd: 0.86 0.7-1.1 cm LV Mass: 97.92 67-162/88-224 g LV Mass Index: 54.10 43-95/49-115 g/m2 LVOT Diam: 1.80 3.0+(-)1.3 cm 2D Systolic Function EF 4C: 64.70 >55% EF 2C: 70.60 >55% EF BiP: 68.20 >55% Mitral Valve MV VTI: 0.40 MV Pk Florentino: 1.24 MV Mn Florentino: 0.67 MV Pk Grad: 6.00 MV Mn Grad: 2.00 MV Pk E: 1.09 MV PK A: 0.76 MV Decel Time: 309.00 E/A: 1.40 E'Lateral: 6.74 E'Medial: 6.74 E/E' Med: 16.20 E/E' Lat: 16.20 PHT: 91.00 MVA PHT: 2.42 MVA Continuity: 1.07 Decel Wheeler: 3.51 Aortic Valve AoV Pk Florentino: 1.10 AoV Mn Florentino: 0.72 AoV VTI: 0.23 AoV Pk Grad: 5.00 Aov Mn Grad: 2.00 YANN Cont.VTI: 1.85 LVOT LVOT Pk Florentino: 0.83 LVOT Mn Florentino: 0.50 LVOT VTI: 0.17 LVOT Pk Grad: 3.00 LVOT Mn Grad: 1.00 LVOT Diam: 1.80 LVOT Area: 2.54 Diastolic Function MV Pk E: 1.09 MV Pk A: 0.76 E/A: 1.40 E'Medial: 6.74 E/E' Med: 16.20 E' Laterial: 6.74 E/E' Lat: 16.20 Right Ventricle TVS' Florentino: 6.96 Tricuspid Valve TR Pk Florentino: 1.38 TR Pk Grad: 8.00 RA Press: 3.00 RVSP: 11.00 Great Vessels Aorta Sinus of Valsalva: 3.25 2.0-3.5 cm Ao Asc: 2.60 2.1-3.4 cm Updated in Other Vendor System with Status of Final Charles Patterson MD electronically signed on 06/21/2022 1:50:29 PM with status of Final
== END ==
LOC: HO.CARD 09:23
PROVIDERS: Visit Provider Internal Medicine
DX: Z95.2 Presence of prosthetic heart valve (principal)
CPT/HCPCS: 93306

== ENCOUNTER → 2022-06-25 08:39 | Outpatient (REF) | payer MEDICARE, SELFPAY ==
--- NOTE | ~2022-06-25 | NM_ITS ---
Myocardial perfusion study Indication: Precordial chest pain to evaluate for myocardial ischemia Technique: The patient was brought in for a Lexiscan perfusion study on 06/25/2022. Patient performed low-level exercise and was injected 0.4 mg of Lexiscan intravenously. Within a minute of injection, 25 mCi of sestamibi was given intravenously. Images were obtained using the SPECT gamma camera interlaced with the gating device. Images were obtained in supine position. Resting perfusion study was performed on 07/02/2022. Patient was administered 25 mCi of sestamibi intravenously at rest. Images were then obtained in supine position. Images obtained with and without CT attenuation. Total DLP 113 mGy-cm. Images were processed with the software and compared side to side in short axis, horizontal long axis and vertical long axis views. Findings: The stress perfusion study showed non attenuated images show overall normal uptake of radiotracer in all segments of LV myocardium. Attenuation corrected images show minimally reduced uptake in the apex of the LV myocardium. The gated study shows normal LV systolic function with calculated LVEF of greater than 70%. LV cavity is normal in size. The gated study shows normal systolic wall thickening and contraction of segments. Resting study shows no significant change compared to stress perfusion study. Gating at rest reveals normal systolic wall motion with ejection fraction at 74%. The findings are consistent with normal myocardial perfusion. NM/NM cardiolite stress test Impression: 1. Myocardial perfusion imaging study shows normal myocardial perfusion 2. Gated LVEF is 74% 3. Transient ischemic dilatation not present EKG is Nondiagnostic for ischemia
--- NOTE | 2022-06-25 08:42 | CA_ITS ---
Acquisition Time: 2022-06-25 09:03:57 Total Exercise Time: 00:02:00 Test Indications: CP Medications: SEE CHART Protocol: LEXISCAN Max HR: 085 BPM 56% of Pred: 150 BPM Max BP: 126/072 mmHG Max Work Load: 1.0 METS Pharmacological stress test with Lexiscan injection, while sitting and kicking her left leg, without anginal symptoms, with isolated PACs, with normotensive response to injection, with nondiagnostic EKG for ischemia. Nuclear images pending. Test reviewed with Dr Lorenzo. Referred By: Bruce Jean Overread By: YENNIFER MUSA
== END ==
LOC: HO.CARD 08:39
PROVIDERS: Visit Provider Internal Medicine
DX: R07.2 Precordial pain (principal)
CPT/HCPCS: 78452; 93017; A9500; J0280; J2785

== ENCOUNTER → 2022-08-05 13:13 | Outpatient (BNVA) | payer MEDICARE, SELFPAY | PROVIDERS: PCP Internal Medicine; Visit Provider Internal Medicine | DX: R07.2 Precordial pain (principal); Z95.2 Presence of prosthetic heart valve | CPT/HCPCS: 99212 ==

== ENCOUNTER 2023-08-04 12:54 | Outpatient (AMB) | payer MEDICARE, SELFPAY ==
[2023-08-04 12:57] VITALS: BP 122/64; PULSE 67
--- NOTE | 2023-08-04 12:57 | MHC.OFFVIS ---
Intake Vital Signs 08/04/23 12:57 Height 5 ft 11 in BMI Reason not done Patient refused/unable BP 122/64 Blood Pressure Location Lt brachial Position Sitting Pulse 67 Intake Visit Reasons: 1 yr f/up Intake Note: 1 year follow up w/ EKG Tobacco Drier Operator Required: No Allergies No Known Allergies Allergy (Unknown, Verified 08/04/23 13:00) NOT APPLICABLE Medication List - Last Reconciled 08/04/23 by Bruce Jean MD aspirin 81 mg PO DAILY atorvastatin 20 mg PO BEDTIME duloxetine 1 cap PO DAILY escitalopram oxalate (Lexapro) 10 mg PO DAILY lamotrigine 25 mg PO DAILY lorazepam 1 mg PO TID melatonin 3 mg PO BEDTIME PRN tapentadol ER (Nucynta ER) 150 mg PO BID trazodone 100 mg PO BEDTIME warfarin 2 mg PO DAILY@1800 warfarin mg PO HPI HPI Comments History of Present Illness Details Agnes returns for follow-up. To recall, she has a history of rheumatic fever and mitral valve regurgitation. 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 [facility] [place] Then had a right sided stroke in 1993. Per patient, this happened in the setting of interruption of anticoagulation around dental procedure. Overall feeling good. No new complaints. [facility] Medical History (Updated 05/13/22 @ 14:17 by Bruce Jean MD) CVA (cerebral vascular accident) Depression Anxiety Hyperlipidemia Surgical History Mitral valve replaced Family History Father No problems noted. Mother No problems noted. Social History Patient Tobacco Use Status: Never used Tobacco Advance Directives Date on File: 04/24/22 service: No Current occupational status: retired Review of Systems Const Denies weakness ENT Denies dizziness Card Denies chest pain, Denies chest pain with activity, Denies syncope, Denies rapid heart rate, Denies pedal edema, Denies edema, Denies leg edema, Denies lightheadedness, Denies palpitations, Denies dyspnea, Denies dyspnea on exertion and Denies orthopnea Resp Denies cough, Denies dyspnea and Denies dyspnea on exertion GI Denies hematochezia and Denies change in stool character Musc Denies abnormal gait, Denies muscle cramps, Denies muscle weakness, Denies numbness, Denies radiating pain into limb and Denies tingling Neuro Denies abnormal gait, Denies dizziness, Denies syncope, Denies numbness, Denies tingling and Denies weakness Endo Denies palpitations Physical Exam Vital Signs: Last Vital Signs Pulse 67 08/04/23 12:57 BP 122/64 08/04/23 12:57 Const General: comfortable and no acute distress Orientation/consciousness: patient oriented x3 HEENT Other: Unremarkable Head: Yes normal to inspection Neck Neck: Yes normal visual inspection Chest Chest palpation & inspection: normal inspection of the chest Resp Auscultation: clear to auscultation bilaterally Cardio Other: Normal prosthetic heart sounds. Palpation: normal PMI GI Palpation (GI): Soft to palpation Back/Spine/Pelvis Other: unremarkable Skin General skin exam: no rashes or lesions noted Neuro General: patient oriented x3 Extrem General: Yes normal to inspection Psych Mental Status: mental status grossly normal Office Procedures EKG Details: EKG with sinus rhythm at 67/Min; leftward axis; nonspecific ST-[place] changes; [place] [address]-[id number], Complete Assessment & Plan Assessment & Plan (1) S/P MVR (mitral valve replacement): Code(s): Z95.2 - Presence of prosthetic heart valve Plan: On aspirin, Coumadin. Echocardiogram with normally functioning prosthetic mitral valve. Normal LVEF at 60-65%. Target INR 3. Plan Discussed with who came for appointment. Orders: Orders CA echo transthoracic complete 51 Weeks Z95.2 - Presence of prosthetic heart valve Coding Level of Care Code Est Pt Level 3 (66827) Diagnoses S/P MVR (mitral valve replacement) Z95.2 CPT Codes EKG - CPT: 70449-[id number], Complete ([id number])
== END 2023-08-04 13:23 | disposition home or self-care (01) ==
PROVIDERS: PCP Internal Medicine; Visit Provider Internal Medicine
DX: Z95.2 Presence of prosthetic heart valve (principal)
CPT/HCPCS: 93010; 99213

== ENCOUNTER → 2023-08-04 12:54 | Outpatient (BNVA) | payer MEDICARE, SELFPAY | PROVIDERS: PCP Internal Medicine; Visit Provider Internal Medicine | DX: Z95.2 Presence of prosthetic heart valve (principal) | CPT/HCPCS: 93005; 99212 ==

== ENCOUNTER → 2024-07-21 12:34 | Outpatient (REF) | payer MEDICARE, SELFPAY ==
--- NOTE | 2024-07-21 12:39 | CA_ITS ---
Transthoracic Echocardiogram Patient (Last, First, Middle): Agnes Vasquez, Gender: Female Date of : 1950 Age: 74 Procedure Date: 07/21/2024 Procedure Type: Transthoracic Echocardiogram Location: OP Height: 180.34 cm Weight: 65.77 kg BSA: 1.84 m2 Heart Rate: bpm BP: 130 / 68 mmHg Counterintelligence Specialist: TO Referring MD: Bruce Jean MD Symptoms: Z95.2 - Presence of prosthetic heart valve Study Quality: Technically Difficult Conclusions: - Normal left ventricular cavity size. There is normal left ventricular wall thickness. The left ventricular systolic function is low normal. The visually estimated ejection fraction is between 50-55%. - The basal anterior segment is hypokinetic. - Normal right ventricular cavity size. There is mildly decreased right ventricular systolic function. - A mechanical prosthetic mitral valve is present. The prosthetic mitral valve appears to be functioning normally. Findings Procedure Information The study quality is limited by the patients inability to tolerate the test and patients body habitus. Left Ventricle Normal left ventricular cavity size. There is normal left ventricular wall thickness. The left ventricular systolic function is low normal. The visually estimated ejection fraction is between 50-55%. There is evidence of regional wall motion abnormalities. There is paradoxical septal motion consistent with post-operative status. Diastolic function is indeterminate on the basis of available data. Wall Motion Rest Echo Findings The basal anterior segment is hypokinetic. Right Ventricle Normal right ventricular cavity size. There is mildly decreased right ventricular systolic function. Atria The left atrium is normal in size. Aortic Valve There is a normal trileaflet aortic valve. There is no aortic valve stenosis. There is no aortic valve regurgitation. Mitral Valve A mechanical prosthetic mitral valve is present. The prosthetic mitral valve appears to be functioning normally. There is no mitral valve regurgitation. There is no mitral valve stenosis. Pulmonic Valve The pulmonic valve is likely normal. Tricuspid Valve Normal tricuspid valve structure. There is no tricuspid valve regurgitation. Tricuspid regurgitation envelope is inadequate for calculation of right ventricular systolic pressure. Normal right atrial pressure. Great Vessels All visible segments of the aorta are normal in size. The visualized portions of the pulmonary artery and branches are normal. Venous The inferior vena cava is normal in size and collapses greater than 50% with inspiration. Pericardium/Pleural Prominent epicardial adipose tissue noted. There is no evidence of pericardial effusion. Prior Study Comparison Changes noted compared to prior study dated: 06/19/2022. EF low normal, cannot rule out basal anterior wall motion. Measurements 2D Linear Measurements IVSd: 0.84 0.6-0.9/0.6-1.0 cm LVIDd: 3.25 3.9-5.3/4.2-5.9 cm LVIDd Index: 1.77 2.4-3.2/2.2-3.1 cm/m2 LVIDs: 2.52 2.0-3.6 cm LVPWd: 0.70 0.7-1.1 cm LA Diam: 3.50 2.7-3.8/3.0-4.0 cm LAIDs Index: 1.90 1.5-2.3 cm/m2 LV Mass: 78.67 67-162/88-224 g LV Mass Index: 42.75 43-95/49-115 g/m2 LVOT Diam: 2.00 3.0+(-)1.3 cm 2D Systolic Function EF 4C: 53.80 >55% Mitral Valve MV VTI: 0.24 MV Pk Florentino: 1.49 MV Mn Florentino: 0.96 MV Pk Grad: 9.00 MV Mn Grad: 4.00 MV Pk E: 1.18 MV Decel Time: 220.00 E'Lateral: 4.46 E'Medial: 5.33 E/E' Med: 22.10 E/E' Lat: 26.50 PHT: 64.00 MVA PHT: 3.44 MVA Continuity: 1.31 Decel Ward: 5.62 Aortic Valve AoV Pk Florentino: 0.89 AoV Pk Grad: 3.00 LVOT LVOT Pk Florentino: 0.61 LVOT Mn Florentino: 0.41 LVOT VTI: 0.10 LVOT Pk Grad: 1.00 LVOT Mn Grad: 1.00 LVOT Diam: 2.00 LVOT Area: 3.14 Diastolic Function MV Pk E: 1.18 E'Medial: 5.33 E/E' Med: 22.10 E' Laterial: 4.46 E/E' Lat: 26.50 Tricuspid Valve RA Press: 3.00 Great Vessels Aorta Sinus of Valsalva: 2.99 2.0-3.5 cm Ao Asc: 2.90 2.1-3.4 cm Updated in Other Vendor System with Status of Final Huseyin Lorenzo MD electronically signed on 07/23/2024 8:05:55 PM with status of Final
== END ==
LOC: HO.CARD 12:34
PROVIDERS: PCP Internal Medicine; Visit Provider Internal Medicine
DX: Z95.2 Presence of prosthetic heart valve (principal)
CPT/HCPCS: 93306

== ENCOUNTER → 2024-07-21 12:39 | Outpatient (BNV) | payer MEDICARE, SELFPAY | PROVIDERS: PCP Internal Medicine; Visit Provider Internal Medicine Cardiovascular Disease | DX: Z95.2 Presence of prosthetic heart valve (principal) | CPT/HCPCS: 93306 ==

== ENCOUNTER 2024-08-03 13:02 | Outpatient (AMB) | payer MEDICARE, SELFPAY ==
[2024-08-03 13:04] VITALS: BP 138/80; PULSE 112
--- NOTE | 2024-08-03 13:04 | A.OFFVIS_ITS ---
Vital Signs 08/03/24 13:04 Height 5 ft 11 in BMI Reason not done Patient refused/unable BP 138/80 Blood Pressure Location Lt brachial Position Sitting Pulse 112 H Intake Visit Reasons: 1 year follow-up with ekg after echo Credit Rating Inspector Required: No Accompanied by: Spouse Allergies No Known Allergies Allergy (Unknown, Verified 08/04/23 13:00) NOT APPLICABLE Medication List - Last Reconciled 08/03/24 by Bruce Jean MD aspirin 81 mg PO DAILY atorvastatin 20 mg PO BEDTIME duloxetine 1 cap PO DAILY escitalopram oxalate (Lexapro) 10 mg PO DAILY lamotrigine 25 mg PO DAILY lorazepam 1 mg PO TID melatonin 3 mg PO BEDTIME PRN tapentadol ER (Nucynta ER) 150 mg PO BID PRN trazodone 100 mg PO BEDTIME warfarin 2 mg PO DAILY@1800 warfarin mg PO HPI Comments Details: Agnes returns for follow-up. To recall, she has a history of rheumatic fever and mitral valve regurgitation. 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 Performed at [facility] [place]. Then had a right sided stroke in 1993. Per patient, this happened in the setting of interruption of anticoagulation around dental procedure. Since last seen, no new complaints. However, today she is in atrial fibrillation on the EKG. When I investigate this further, she states she possibly had some palpitations few months ago but otherwise fine. Hence not clear as to the time of onset. [facility] Medical History (Updated 08/03/24 @ 13:30 by Bruce Jean MD) CVA (cerebral vascular accident) Depression Anxiety Hyperlipidemia Surgical History Mitral valve replaced Family History Father No problems noted. Mother No problems noted. Social History (Updated 08/03/24 @ 13:09 by Teresa Brooks CMA) Alcohol intake: former Patient Tobacco Use Status: Never used Tobacco Advance Directives Date on File: 04/24/22 service: No Current occupational status: retired Review of Systems Const Denies chills, Denies fatigue, Denies fever(s), Denies weight gain and Denies weight loss ENT Denies dizziness Card Denies chest pain, Denies leg edema, Denies lightheadedness, Denies palpitations, Denies dyspnea on exertion, Denies orthopnea and Denies other Resp Denies cough and Denies dyspnea on exertion GI Denies hematochezia and Denies change in stool character Musc Denies abnormal gait, Denies muscle weakness, Denies numbness, Denies radiating pain into limb and Denies tingling Neuro Denies abnormal gait, Denies dizziness, Denies numbness and Denies tingling Endo Denies fatigue and Denies palpitations Physical Exam Vital Signs: Last Vital Signs Pulse 112 H 08/03/24 13:04 BP 138/80 08/03/24 13:04 Const General: comfortable and no acute distress Orientation/consciousness: patient oriented x3 HEENT Other: Unremarkable Head: Yes normal to inspection Neck Neck: Yes normal visual inspection Chest Chest palpation & inspection: normal inspection of the chest Resp Auscultation: clear to auscultation bilaterally Cardio Other: Normal prosthetic heart sounds. Palpation: normal PMI GI Palpation (GI): Soft to palpation Back/Spine/Pelvis Other: unremarkable Skin General skin exam: no rashes or lesions noted Neuro General: patient oriented x3 Extrem General: Yes normal to inspection Psych Mental Status: mental status grossly normal Office Procedures EKG Details: EKG with atrial fibrillation at a rate of 112/Min; leftward axis; nonspecific ST-T changes. 92109-[id number], Complete Assessment & Plan Assessment & Plan (1) S/P MVR (mitral valve replacement): Code(s): Z95.2 - Presence of prosthetic heart valve Category: Surgical Plan: On aspirin, Coumadin. Echocardiogram with normally functioning prosthetic mitral valve. Normal LVEF at 60-65%. Target INR 3. In the recent echocardiogram, normal prosthetic valve function. LVEF is slightly diminished at 50-55%. With regard to the question of wall motion, not convincing abnormality. (2) Persistent atrial fibrillation: Code(s): I48.19 - Other persistent atrial fibrillation Category: Medical Plan: She was in atrial fibrillation even on the echocardiogram on 07/21. Actual time of onset unclear but possibly present for the last few weeks/months. No overt symptoms. We will start beta-blockers for rate control. Check Holter monitor. If necessary, add digoxin. Plan Discussed with . Orders: Orders ECG 3 day holter monitor Today I48.19 - Other persistent atrial fibrillation Medications: New metoprolol tartrate 25 mg PO BID 90 days 180 tabs 3RF Coding Level of Care Code Est Pt Level 4 (94694) Diagnoses S/P MVR (mitral valve replacement) Z95.2 Persistent atrial fibrillation I48.19 CPT Codes EKG - CPT: 76308-[id number], Complete ([id number])
== END 2024-08-03 13:32 | disposition home or self-care (01) ==
PROVIDERS: PCP Internal Medicine; Visit Provider Internal Medicine
DX: Z95.2 Presence of prosthetic heart valve (principal); I48.19 Other persistent atrial fibrillation
CPT/HCPCS: 93010; 99214

== ENCOUNTER → 2024-08-03 13:02 | Outpatient (BNVA) | payer MEDICARE, SELFPAY | PROVIDERS: PCP Internal Medicine; Visit Provider Internal Medicine | DX: I48.19 Other persistent atrial fibrillation (principal); Z95.2 Presence of prosthetic heart valve; R94.31 Abnormal electrocardiogram [ECG] [EKG] | CPT/HCPCS: 93005; 99212 ==